=== PATIENT | female | born 1985 | race Caucasian/White ===

== ENCOUNTER 2021-05-13 11:59 | Emergency (ER) | payer OTHER ==
[~2021-05-13] VITALS: Ht 162.6 cm; Wt 77.1 kg
[2021-05-13 12:00] VITALS: BP_SYST 116
[2021-05-13] MEDS ORDERED: KETOROLAC TROMETHAMINE 30 MG VIAL IM ONE (13:45)
[2021-05-13] MEDS ORDERED: DEXAMETHASONE SOD PHOSPHATE 10 MG/ML VIAL PO ONE (13:45)
[2021-05-13] MEDS ORDERED: HYDR-3917 PO (13:46)
[2021-05-13] MEDS ORDERED: AMOX-426 PO (13:46)
[2021-05-13 13:54] VITALS: BP_SYST 116
== END 2021-05-13 13:55 | disposition home or self-care (01) ==
LOC: SED 11:59
DX: J02.9 Acute pharyngitis, unspecified (principal); Z79.899 Other long term (current) drug therapy
CPT/HCPCS: 86403; 87081; 96372; 99283; J1100; J1885; 36415

== ENCOUNTER 2021-09-22 12:37 | Emergency (ER) | payer OTHER, SELFPAY ==
[~2021-09-22] VITALS: Ht 162.6 cm; Wt 77.1 kg
[~2021-09-22 12:37] MED LIST: AMOX-426 PO; HYDR-3917 PO
[2021-09-22 12:45] VITALS: BP_SYST 132
[2021-09-22] MEDS ORDERED: BENZ1LOZ58 PO (13:00)
[2021-09-22] MEDS ORDERED: ZIT250 PO (13:00)
[2021-09-22] MEDS ORDERED: PRED20TA PO (13:00)
[2021-09-22 13:22] VITALS: BP_SYST 132
== END 2021-09-22 13:22 | disposition home or self-care (01) ==
LOC: SED 12:37
DX: J02.9 Acute pharyngitis, unspecified (principal); Z79.899 Other long term (current) drug therapy; Z20.822 Contact with and (suspected) exposure to COVID-19
CPT/HCPCS: 86403; 99283; U0003; C9803

== ENCOUNTER 2022-02-22 08:20 | Emergency (ER) | payer OTHER ==
[~2022-02-22] VITALS: Ht 162.6 cm; Wt 81.6 kg
[~2022-02-22 08:20] MED LIST changes: +BENZ1LOZ73 PO; +PRED20TA PO; +ZIT250 PO
[2022-02-22 08:34] VITALS: BP_SYST 136
--- NOTE | 2022-02-22 08:34 | NUR ---
Triage assessment documented per Joselo GALLEGO
--- NOTE | 2022-02-22 09:38 | NUR ---
Dr Alas placed orders for patient.
[2022-02-22] MEDS ORDERED: IBUPROFEN 800 MG TABLET PO ONE (09:45)
--- NOTE | 2022-02-22 10:45 | NUR ---
Pt noted to be in rm 8. No report received.
--- NOTE | 2022-02-22 10:51 | NUR ---
Per face to face assessment, pt here from home reporting sore throat and headache 07/26. [facility] has hx strep throat and [facility] swab was collected and sent to lab. Awaiting further dispo.
--- NOTE | 2022-02-22 12:30 | NUR ---
Pt left without being re-assessed or provided discharge instructions. Pain unable to be re-assessed.
--- NOTE | 2022-02-22 12:30 | NUR ---
This filing writer noted no one to be in rm. Pt left without receiving discharge instructions.
[2022-02-22] MEDS ORDERED: PSEU30TA36 PO (12:44)
[2022-02-22] MEDS ORDERED: IBUP-1969 PO (12:44)
== END 2022-02-22 12:30 | disposition home or self-care (01) ==
LOC: SED 08:20
DX: J02.9 Acute pharyngitis, unspecified (principal); Z79.899 Other long term (current) drug therapy
CPT/HCPCS: 36415; 86403; 87081; 99283